=== PATIENT | female | born 1990 | race Caucasian/White ===

== ENCOUNTER 2017-06-27 09:30 | Emergency (ER) | payer OTHER ==
--- NOTE | 2017-06-27 09:51 | ED Physician Documentation ---
Female Urogenital Problems - HISTORIAN Historian: patient - HPI Chief Complaint: Female Urogenital Problems Additional Information: burning with urination x 4 days, chronic back pain with movement x months, intermittant Onset: days ago Severity: mild Further Comments: no - Associated Symptoms Urinary Symptoms: discomfort w/ urination, burning w/ urination, urgency w/ urination Discharge: denies: vaginal discharge - ROS CONST: none. denies: fever GI/: denies: nausea, vomiting CVS/RESP: none EYES/ENT: none NEURO/PSYCH: none MS/SKIN/LYMPH: none - PAST HX Past History: PID, ovarian cyst(s) Other History: bladder infection Surgeries/Procedures: salpingo-oophorectomy Allergies/Adverse Reactions: Allergies Allergy/AdvReac Type Severity Reaction Status Date / Time adhesive AdvReac Intermediate Rash Verified 06/27/17 09:58 azithromycin AdvReac Intermediate vomiting , Verified 06/27/17 09:58 diarrhea metronidazole [From Flagyl] AdvReac Intermediate Vomiting, Verified 06/27/17 09: 58 Diarrhea - SOCIAL HX Smoking History: non-smoker Alcohol Use: none Drug Use: none - FAMILY HX Family History: ovarian cysts, ovarian cancer - VITAL SIGNS Vital Signs: Vital Signs Temp Pulse Resp BP Pulse Ox 105/68 04/19/16 18:38 - REVIEWED ASSESSMENTS Nursing Assessment Reviewed: Yes Vitals Reviewed: Yes ED Results Lab/Radiology - Lab Results Lab Results: UA positive for nitrites Female Urogenital Problems - EXAM General Appearance: no acute distress, alert EENT: ENT inspection normal, no signs of dehydration Neck: nml inspection Respiratory: no resp. distress Abdomen: soft, non-tender Back: non-tender Skin: color nml, no rash, warm,dry Extremities: non-tender, normal range of motion Neuro: oriented X3, mood/affect nml, cognition normal Discharge Clincal Impression: UTI (urinary tract infection) Qualifiers: Urinary tract infection type: acute cystitis Hematuria presence: without hematuria Qualified Code(s): N30.00 - Acute cystitis without hematuria Back pain Qualifiers: Back pain location: low back pain Chronicity: chronic Back pain laterality: unspecified Sciatica presence: without sciatica Qualified Code(s): M54.5 - Low back pain; G89.29 - Other chronic pain Referrals: Primary Doctor,No [Primary Care Provider] - 2 Days Condition: Good Disposition: HOME, SELF-CARE Decision to Admit: NO Date of Decison to Admit: 06/27/17 Decision Time: 10:03
[2017-06-27 10:03] LABS: APPEARANCE,URINE CLEAR (CLEAR); COLOR,URINE YELLOW (YELLOW); OCCULT BLOOD,URINE NEGATIVE (NEGATIVE); PH URINE 5.5 (5.0 - 8.0); UROBILINOGEN URINE 0.2 Eu (0.2-1.0)
[2017-06-27 10:17] VITALS: BP 110/70
== END 2017-06-27 10:16 | disposition home or self-care (01) ==
LOC: ED 09:30
DX: N30.00 Acute cystitis without hematuria (principal); M54.5 Low back pain; G89.29 Other chronic pain
CPT/HCPCS: 81002; 87086; 99283